=== PATIENT | male | born 1995 | race Asian ===

== ENCOUNTER 2017-01-11 21:27 | Emergency (ER) | payer OTHER ==
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
== END 2017-01-11 22:52 | disposition home or self-care (01) ==
LOC: CFTX 21:27
DX: S02.32XA Fracture of orbital floor, left side, initial encounter for closed fracture (principal); Y04.0XXA Assault by unarmed brawl or fight, initial encounter; Y92.9 Unspecified place or not applicable
CPT/HCPCS: 70450; 72125; 73030; 99284

== ENCOUNTER 2017-02-10 23:44 | Emergency (ER) | payer OTHER ==
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
== END 2017-02-11 00:45 | disposition home or self-care (01) ==
LOC: CED 23:44
DX: S00.83XA Contusion of other part of head, initial encounter (principal); F17.210 Nicotine dependence, cigarettes, uncomplicated; W22.8XXA Striking against or struck by other objects, initial encounter; Y92.009 Unspecified place in unspecified non-institutional (private) residence as the place of occurrence of the external cause
CPT/HCPCS: 70486; 99284